=== PATIENT | female | born 1980 | race American Indian/Alaskan Native ===

== ENCOUNTER 2017-05-26 00:14 | Emergency (ER) | payer OTHER ==
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
[2017-05-26] MEDS ORDERED: ULTRAM PO ONE (04:33)
[2017-05-26] MEDS ORDERED: MOTRIN PO ONE (04:33)
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
[2017-05-26 05:57] VITALS: BP 137/81
== END 2017-05-26 05:57 | disposition home or self-care (01) ==
LOC: ED 00:14
DX: M79.622 Pain in left upper arm (principal); M25.512 Pain in left shoulder; V49.49XA Driver injured in collision with other motor vehicles in traffic accident, initial encounter; Y93.89 Activity, other specified; Y92.89 Other specified places as the place of occurrence of the external cause; Y99.8 Other external cause status
CPT/HCPCS: 99284

== ENCOUNTER 2018-01-01 10:35 | Emergency (ER) | payer SELFPAY ==
[2018-01-01 11:15] VITALS: BP 138/93
== END 2018-01-01 13:38 ==
LOC: ED 10:35
DX: R07.89 Other chest pain (principal); Z53.21 Procedure and treatment not carried out due to patient leaving prior to being seen by health care provider
CPT/HCPCS: 93005; 93010